=== PATIENT | female | born 1935 | race Hispanic/Latino ===

== ENCOUNTER 2017-11-23 10:35 | Emergency (ER) | payer BC, MEDICARE ==
[2017-11-23 10:36] VITALS: BMI 23.8
[2017-11-23 10:48] VITALS: BP 128/88
--- NOTE | 2017-11-23 11:15 | ED PDOC ---
Arrival/HPI - General Chief Complaint: Upper Extremity Problem/Injury Time Seen by Provider: 11/23/17 11:00 Historian: Patient - History of Present Illness Narrative History of Present Illness (Text): 11/23/17 11:05 Patient is a 82 year old female with past medical history HTN, GERD, gastric ulcers, rotator cuff surgery, arthritis who presents to the ED for left wrist pain that started 2 days ago. Patient denies any trauma or inciting events. Patient states that her wrist hurts with movement. Pain starts at the ulnar aspect of left wrist and radiates up the arm. This has never happened to her before. She tried applying Bengay and a heating pad to her arm with no relief in symptoms. Patient is right handed. Denies any numbness or tingling, pruritis. Time/Duration: < week Symptom Onset: Sudden Symptom Course: Unchanged Past Medical History - Provider Review Nursing Documentation Reviewed: Yes - Infectious Disease Hx of Infectious Diseases: None - Reproductive Menopause: Yes - Cardiac Hx Hypertension: Yes - Hematological/Oncological Hx Blood Transfusions: No Hx Blood Transfusion Reaction: No - Musculoskeletal/Rheumatological Hx Arthritis: Yes - Gastrointestinal Hx Gastroesophageal Reflux: Yes - Psychiatric Hx Emotional Abuse: No Hx Physical Abuse: No Hx Substance Use: No - Surgical History Hx Hysterectomy: Yes Hx Orthopedic Surgery: Yes (rotator cuff) - Anesthesia Hx Anesthesia Reactions: No Hx Malignant Hyperthermia: No - Suicidal Assessment Feels Threatened In Home Enviroment: No Family/Social History - Physician Review Nursing Documentation Reviewed: Yes Family/Social History: Unknown Family HX Smoking Status: Current Some Days Smoker Hx Alcohol Use: Yes Frequency of alcohol use: Few days per week Hx Substance Use: No Allergies/Home Meds Allergies/Adverse Reactions: Allergies No Known Allergies Allergy (Verified 11/23/17 10:48) Home Medications: Home Meds Medication Instructions Recorded Confirmed Esomeprazole Magnesium [Nexium] 40 mg PO DAILY 11/23/17 11/23/17 Losartan/Hydrochlorothiazide 1 tab PO DAILY 11/23/17 11/23/17 [Hyzaar 100-25 Tablet] Review of Systems - Review of Systems Constitutional: Normal. absent: Fatigue, Fevers Eyes: Normal. absent: Vision Changes ENT: Normal. absent: Hearing Changes Respiratory: Normal. absent: SOB, Cough Cardiovascular: Normal. absent: Chest Pain, Palpitations Gastrointestinal: Normal. absent: Abdominal Pain, Constipation, Diarrhea, Nausea, Vomiting Genitourinary Female: Normal. absent: Dysuria, Hematuria Musculoskeletal: Joint Swelling Skin: absent: Rash, Pruritis Neurological: Normal. absent: Headache, Dizziness Physical Exam Vital Signs Reviewed: Yes Vital Signs Temp Pulse Resp BP Pulse Ox 11/23/17 12:59 97.9 F 86 19 98 11/23/17 10:46 98.3 F 74 18 128/88 99 Temperature: Afebrile Blood Pressure: Normal Pulse: Regular Respiratory Rate: Normal Appearance: Positive for: Well-Appearing, Comfortable Pain Distress: Mild Mental Status: Positive for: Alert and Oriented X 3 - Systems Exam Head: Present: Atraumatic, Normocephalic Pupils: Present: PERRL Extroacular Muscles: Present: EOMI Mouth: Present: Moist Mucous Membranes Neck: Present: Normal Range of Motion Respiratory/Chest: Present: Clear to Auscultation, Good Air Exchange Cardiovascular: Present: Regular Rate and Rhythm Abdomen: Present: Normal Bowel Sounds Upper Extremity: Present: Other (Left wrist: radial/ulnar pulses intact; tenderness and mild edema of ulnar aspect of left wrist, erythematous, no tracking visualized, ROM limited in wrist extension 2/2 pain) Neurological: Present: CN II-XII Intact Skin: Present: Warm, Dry Psychiatric: Present: Alert, Oriented x 3 Medical Decision Making ED Course and Treatment: 11/23/17 11:44 Patient is a 82 year old female with past medical history of HTN, GERD, Gastric ulcers who presents to the ED with two day history of left wrist pain. Denies any inciting events or trauma. Left wrist x rays ordered. Toradol 30mg IM and Pepcid 20mg PO for pain control. 11/23/17 12:03 Wrist xrays reviewed, no acute fractures noted. Will discharge patient home with instructions to follow up with PMD within 1-2 days. Patient given prescription for Motrin which can be taken with pepcid or her home medication nexium. - RAD Interpretation Narrative RAD Interpretations (Text): 11/23/17 12:04 L Wrist xray: no acute fractures Radiology Orders: 11/23/17 11:33 WRIST, LEFT 3 VIEWS [RAD] Stat Sander Portable Machine: ED Physician - Medication Orders Current Medication Orders: Discontinued Medications Famotidine (Pepcid) 20 mg PO STAT STA Stop: 11/23/17 11:35 Last Admin: 11/23/17 12:22 Dose: 20 mg Ketorolac Tromethamine (Toradol) 30 mg IM STAT STA Stop: 11/23/17 11:35 Last Admin: 11/23/17 12:22 Dose: 30 mg MAR Pain Assessment Document 11/23/17 12:22 [email or web address] (Rec: 11/23/17 12:22 [email or web address] [id number]) Pain Reassessment Is this a pain reassessment? No Sleep Is patient sleeping during reassessment? No Presence of Pain Presence of Pain Yes Pain Scale Used Pain Scale Used Numeric Location Left, Right or Bilateral Left Pain Location Body Site Arm Description Description Constant Intensity of Pain at present 7 Pain Behavior Facial Grimacing Aggravating Factors Changing Position Alleviating Factors/Management Medication Techniques Alleviating Factors Medication IM Administration Charges Document 11/23/17 12:22 [email or web address] (Rec: 11/23/17 12:22 [email or web address] [id number]) Injection Site MAR Injection Site Left Deltoid Charges for Administration # of IM Administrations 1 Disposition/Present on Arrival - Present on Arrival Any Indicators Present on Arrival: No History of DVT/PE: No History of Uncontrolled Diabetes: No Urinary Catheter: No History of Decub. Ulcer: No History Surgical Site Infection Following: None - Disposition Have Diagnosis and Disposition been Completed?: Yes Diagnosis: Wrist pain, left Disposition: HOME/ ROUTINE Disposition Time: 12:25 Patient Plan: Discharge Condition: GOOD Discharge Instructions (ExitCare): Gout Additional Instructions: Please take Motrin as needed for pain with Pepcid or home medication Nexium Follow up with PMD within 2-3 days for follow up and further workup Prescriptions: Famotidine [Pepcid] 20 mg PO Q12H #14 tab Ibuprofen [Motrin] 600 mg PO Q6H PRN #20 tab PRN Reason: Pain, Moderate (4-7) Forms: [employer] (Bulgarian)
[2017-11-23 13:00] VITALS: PULSE 86; RESP 19; TEMP 97.9; O2SAT 98
--- NOTE | 2017-11-23 15:35 | RAD ---
Date of service: 11/23/2017 PROCEDURE: Left Wrist Radiographs. HISTORY: Wrist Pain. No history of recent/ related trauma provided COMPARISON: None. FINDINGS: BONES: Normal. No fracture. JOINTS: Normal. No dislocation. SOFT TISSUES: Focal soft tissue swelling adjacent to the distal ulna. OTHER FINDINGS: None. IMPRESSION: Soft tissue swelling without acute articular or osseous abnormality.
== END 2017-11-23 13:00 | disposition home or self-care (01) ==
LOC: ED 10:35
DX: M25.532 Pain in left wrist (principal)
CPT/HCPCS: 73110; 96372; 99282; J1885